=== PATIENT | female | born 1945 | race Caucasian/White ===

== ENCOUNTER → 2017-04-13 | Outpatient (CLI) | payer MEDICARE ==
--- NOTE | 2017-04-16 10:09 | MM ---
Reason for exam: screening (asymptomatic). Last mammogram was performed 1 year ago. History: Patient is postmenopausal. Took estrogen for 4 years. Took progesterone for 4 years. Physical Findings: A clinical breast exam by your physician is recommended on an annual basis and results should be correlated with mammographic findings. MG 3D Screening Mammo W/Cad Bilateral CC and MLO view(s) were taken. Prior study comparison: April 12, 2016, bilateral MG 3d screening mammo w/cad. March 09, 2015, bilateral MG screening mammo w CAD. The breast tissue is heterogeneously dense. This may lower the sensitivity of mammography. There is no discrete abnormality. No significant changes when compared with prior studies. ASSESSMENT: Negative, BI-RAD 1 RECOMMENDATION: Routine screening mammogram of both breasts in 1 year.
== END | disposition home or self-care (01) ==
LOC: RADMAMWWP 14:27
PROVIDERS: ATTEND Family Medicine
DX: Z12.31 Encounter for screening mammogram for malignant neoplasm of breast (principal)
CPT/HCPCS: 77063; G0202

== ENCOUNTER → 2018-02-11 | Outpatient (CLI) | payer MEDICARE ==
[2018-02-11 10:32] LABS: ALT 32 U/L (9-52); AST 27 U/L (14-36); Cholesterol 231 mg/dL (<200); Creatine Kinase 120 U/L (30-135); HDL Cholesterol 66 mg/dL (40-60); LDL Cholesterol,Calculated 125 mg/dL (0-99); Triglycerides 199 mg/dL (<150)
== END | disposition home or self-care (01) ==
LOC: LABWHC1 09:44
PROVIDERS: ATTEND Internal Medicine Interventional Cardiology
DX: E78.5 Hyperlipidemia, unspecified (principal); I25.10 Atherosclerotic heart disease of native coronary artery without angina pectoris
CPT/HCPCS: 36415; 80061; 82550; 84450; 84460

== ENCOUNTER → 2018-06-11 | Outpatient (CLI) | payer MEDICARE ==
[2018-06-11 11:48] LABS: Calcium 9.5 mg/dL (8.4-10.2); Potassium 3.2 mmol/L (3.5-5.1)
== END ==
LOC: LABWHC1 09:51
PROVIDERS: ATTEND Internal Medicine Interventional Cardiology
DX: I25.10 Atherosclerotic heart disease of native coronary artery without angina pectoris (principal); I10 Essential (primary) hypertension
CPT/HCPCS: 36415; 80048

== ENCOUNTER → 2019-04-08 | Outpatient (CLI) | payer MEDICARE ==
--- NOTE | 2019-04-08 16:14 | CT ---
EXAMINATION TYPE: CT cervical spine wo con DATE OF EXAM: 04/08/2019 COMPARISON: None HISTORY: Cervical radiculopathy M 54.12 CT DLP: 338.43 mGycm CONTRAST: None CT of the cervical spine is performed in the axial plane at 2 mm thick sections. Reconstructed image s in the coronal, and sagittal plane are reviewed on the computer. No acute fractures are evident. There is a cervical kyphosis centered at C5. Loss of disc height is evident C5-6 C6-7. Some posterior endplate spurring is present C6-7. Disc heights are preserved. Vertebral body heights are preserved. No spinal canal stenosis is evident Severe foraminal stenosis from uncovertebral joint hypertrophy and facet hypertrophy is present on th e right at C3-4 and on the left at C4-5 and on the right at C5-6 C6-7. Moderate foraminal narrowing a t C6-7 is on the left. IMPRESSIONS: 1. Degenerative disc changes C5-6 C6-7. 2. Severe foraminal stenosis discussed above. Correlate with the radicular symptoms.
== END | disposition home or self-care (01) ==
LOC: RADCTMAIN 15:33
PROVIDERS: ATTEND Family Medicine
DX: M48.02 Spinal stenosis, cervical region (principal); M47.22 Other spondylosis with radiculopathy, cervical region; Z88.0 Allergy status to penicillin
CPT/HCPCS: 72125

== ENCOUNTER → 2021-06-21 | Outpatient (CLI) | payer MEDICARE ==
--- NOTE | 2021-06-21 10:25 | MR ---
EXAMINATION TYPE: MR cervical spine wo con DATE OF EXAM: 06/21/2021 COMPARISON: CT cervical spine 04/08/2019 HISTORY: Pain TECHNIQUE: Multiplanar, multisequence images of the cervical spine were acquired without contrast. Exam is severely limited due to motion artifact. There is loss of the normal cervical lordosis with m ultilevel degenerative disc disease with complete loss of disc space and anterior spurring, posterior spondylosis C5-6 and C6-C7. Due to motion artifact assessment spinal cord for abnormal signals limit ed. Report called to referring clinician faxed 10:21 AM 1017 C2-C3: Degenerative disc disease with uncovertebral joint hypertrophy on the left. Results in mild le ft foraminal encroachment. No canal stenosis or disc herniation. C3-C4: Degenerative disc disease with bilateral facet arthropathy and mild uncovertebral joint hypert rophy. There is moderate right-sided foraminal encroachment and mild left foraminal encroachment. No Canal stenosis. Central disc bulging without evidence of discrete herniation. C4-C5: Degenerative disc disease with central disc protrusion or herniation contacting the anterior m argin of the spinal cord. There is facet arthropathy and uncovertebral joint hypertrophy. Neural fora jayna demonstrate no significant encroachment. C5-C6: Severe degenerative disc disease with broad-based disc herniation resulting in anterior spinal cord compression. There is hypertrophic change of the facets and ligamentum flavum with bilateral se rodrigo foraminal encroachment. Not excluded abnormal signal in the spinal cord at this level. C6-C7: Severe degenerative disc disease with broad-based central disc herniation and posterior spondy losis. Disc likely complete capped by spur. Severe canal stenosis and spinal cord compression. Facet arthropathy and uncovertebral joint hypertrophy. Bilateral severe foraminal encroachment. Assessment is markedly limited due to motion artifact. Could not exclude abnormal signal in the spinal cord at t his level. C7-T1: Degenerative disc disease with facet arthropathy. There is bilateral foraminal encroachment bu t no canal stenosis. IMPRESSION: 1. Limited exam due to motion artifact demonstrates multilevel severe degenerative disc disease with disc herniations at C4-5, C5-6 and C6-C7 resulting in anterior compression of the spinal cord. Canal stenosis most marked at C5-6 and C6-C7. 2. Multilevel significant foraminal encroachment.
--- NOTE | 2021-06-21 10:29 | MR ---
EXAMINATION TYPE: MR shoulder LT wo con DATE OF EXAM: 06/21/2021 COMPARISON: None HISTORY: L shoulder pain, weakness TECHNIQUE: Multiplanar, multisequence imaging of the left shoulder is performed without contrast. FINDINGS: Severe motion artifact results in nondiagnostic exam. Grossly there is fluid in the subacro mial bursa which could been indirect sign of rotator cuff disease or tear. Suspect at least a partial tear of the anterior fibers of the supraspinatus tendon. Small amount of fluid in the glenohumeral j oint. Bony labrum not well seen. AC joint arthropathy incidentally noted. Could not clearly identify the bicipital tendon in the bicipital groove due to artifact. IMPRESSION: Nondiagnostic exam due to severe motion artifact. See above.
== END | disposition home or self-care (01) ==
LOC: RADMRIMAIN 08:18
PROVIDERS: ATTEND Nurse Practitioner Family
DX: M50.323 Other cervical disc degeneration at C6-C7 level (principal); M48.02 Spinal stenosis, cervical region
CPT/HCPCS: 72141